=== PATIENT | female | born 1975 | race Caucasian/White ===

== ENCOUNTER → 2017-09-15 | Outpatient (CLI) | payer BC | LOC: MC.RAD 07:39 | DX: Z12.31 Encounter for screening mammogram for malignant neoplasm of breast (principal) ==

== ENCOUNTER → 2017-12-05 | Outpatient (CLI) | payer BC | LOC: MC.RAD 08:00 | DX: N63.22 Unspecified lump in the left breast, upper inner quadrant (principal) ==

== ENCOUNTER → 2018-08-31 | Outpatient (CLI) | payer BC | LOC: COL.RAD 07:30 | DX: E04.9 Nontoxic goiter, unspecified (principal) ==

== ENCOUNTER → 2018-10-16 | Outpatient (CLI) | payer BC | LOC: MC.RAD 06:57 | DX: Z12.31 Encounter for screening mammogram for malignant neoplasm of breast (principal) ==

== ENCOUNTER → 2019-03-09 | Outpatient (CLI) | payer BC | LOC: COL.RAD 09:45 | DX: E04.2 Nontoxic multinodular goiter (principal) ==

== ENCOUNTER 2019-09-13 06:20 | Day surgery (SDC) | payer BC ==
[~2019-09-13] VITALS: Ht 165.1 cm; Wt 93.6 kg
[2019-09-13] MEDS ORDERED: TOPROL XL 25MG25 MG PO (06:43)
[2019-09-13] MEDS ORDERED: PRIL40 PO (06:43)
[2019-09-13] MEDS ORDERED: ERGOCALCIFER50000 IU PO (06:43)
[2019-09-13 07:43] VITALS: BP 134/89; PULSE 86; TEMP 98.7
[2019-09-13 08:05] VITALS: BP 124/82; PULSE 87; TEMP 98
--- NOTE | 2019-09-13 08:05 | NUR ---
Patient arrives to [facility] via cart, accompanied by Endo RN Rosa. Bedside report is recieved. She is alert and oriented. She ambulates with standby assist to the chair in the room. Monitoring is applied - VSS and WNL on room air. She denies pain or nausea. She is offered and receives jello and juice. Spouse is at the bedside.
--- NOTE | 2019-09-13 08:10 | NUR ---
Dr. Hoff is at the bedside at this time.
[2019-09-13 08:20] VITALS: BP 136/88; PULSE 81
--- NOTE | 2019-09-13 08:20 | NUR ---
Patient denies any pain, nausea, or need at this time. VSS and WNL on room air.
[2019-09-13 08:35] VITALS: BP 143/73; PULSE 84
--- NOTE | 2019-09-13 08:50 | NUR ---
Patient has met discharge criteria. Discharge instructions are discussed. She denies any questions and verbalizes understanding. PIV is removed with catheter intact and hemostasis achieved. She changes to her clothing independently. She is escorted to the exit via wheelchair by staff. She is discharged to home with ride in private vehicle at 0850.
== END 2019-09-13 08:50 | disposition home or self-care (01) ==
LOC: SDCO 06:20
DX: R11.0 Nausea (principal); R10.9 Unspecified abdominal pain; K21.9 Gastro-esophageal reflux disease without esophagitis; E06.3 Autoimmune thyroiditis
CPT/HCPCS: J2704; J3010; J7030

== ENCOUNTER → 2019-12-28 | Outpatient (CLI) | payer BC ==
[~2019-12-28] MED LIST: ERGOCALCIFER50000 IU PO; PRIL40 PO; TOPROL XL 25MG25 MG PO
== END ==
LOC: MC.RAD 10-14 07:00
DX: Z12.31 Encounter for screening mammogram for malignant neoplasm of breast (principal); N64.89 Other specified disorders of breast

== ENCOUNTER → 2019-12-30 | Outpatient (CLI) | payer BC | LOC: MC.RAD 09:10 | DX: R92.8 Other abnormal and inconclusive findings on diagnostic imaging of breast (principal); N64.59 Other signs and symptoms in breast | CPT/HCPCS: G0279 ==

== ENCOUNTER → 2021-01-10 | Outpatient (CLI) | payer BC | LOC: MC.RAD 07:27 | DX: Z12.31 Encounter for screening mammogram for malignant neoplasm of breast (principal) ==

== ENCOUNTER 2022-01-02 06:57 | Day surgery (SDC) | payer BC ==
[~2022-01-02] VITALS: Ht 165.1 cm; Wt 87.9 kg
[2022-01-02] MEDS ORDERED: IRON (07:11)
[2022-01-02] MEDS ORDERED: DHEA PO (07:12)
[2022-01-02] MEDS ORDERED: ONE-A-DAY ESSE1 EACH PO (07:12)
[2022-01-02] MEDS ORDERED: [UNRECOGNIZED DRUG - OTHER] (07:13)
[2022-01-02 07:33] VITALS: BP 126/88; PULSE 86; TEMP 98.4
--- NOTE | 2022-01-02 08:35 | NUR ---
PATIENT ARRIVED TO ROOM VIA CART. VITAL SIGNS ARE NORMAL AND PATIENT IS AWAKE AND ORIENTED ABLE TO AMBULATE TO CHAIR WITH ASSIST X 2. SHE REQUESTS JELLO AND WATER. WILL CONTINUE TO MONITOR.
[2022-01-02 08:45] VITALS: BP 104/74; PULSE 72; TEMP 97.7
[2022-01-02 08:50] VITALS: BP 112/91; PULSE 75
--- NOTE | 2022-01-02 08:50 | NUR ---
PATIENT IS AWAKE AND ALERT. DOCTOR AT BEDSIDE. SHE IS TOLERATING HER JELLO AND WATER. DENIES ANY NAUSEA. WILL CONTINUE TO MONITOR.
[2022-01-02 09:05] VITALS: BP 131/93; PULSE 72
--- NOTE | 2022-01-02 09:05 | NUR ---
PATIENT ALERT AND ORIENTED, READY TO GO HOME. I CALLED HER , HE IS ON THE WAY TO PICK HER UP. IV REMOVED AT 0910. DISCHARGE INSTRUCTIONS REVIEWED. PATIENT IS GETTING DRESSED AND WILL DISCHARGE SOON.
== END 2022-01-02 09:20 | disposition home or self-care (01) ==
LOC: SDCO 06:57
DX: Z12.11 Encounter for screening for malignant neoplasm of colon (principal); K51.40 Inflammatory polyps of colon without complications; D12.5 Benign neoplasm of sigmoid colon; K62.89 Other specified diseases of anus and rectum
CPT/HCPCS: J2704; J7030

== ENCOUNTER → 2022-01-11 | Outpatient (CLI) | payer BC ==
[~2022-01-11] MED LIST changes: +DHEA PO; +IRON; +ONE-A-DAY ESSE1 EACH PO; +[UNRECOGNIZED DRUG - OTHER]
== END ==
LOC: MC.RAD 07:29
DX: Z12.31 Encounter for screening mammogram for malignant neoplasm of breast (principal)

== ENCOUNTER → 2023-04-29 | Outpatient (CLI) | payer BC | LOC: COL.RAD 08:30 | DX: E04.1 Nontoxic single thyroid nodule (principal); E06.3 Autoimmune thyroiditis ==

== ENCOUNTER → 2024-02-13 | Outpatient (CLI) | payer BC | LOC: MC.RAD 07:30 | DX: Z12.31 Encounter for screening mammogram for malignant neoplasm of breast (principal) ==